=== PATIENT | female | born 1955 ===

== ENCOUNTER 2019-04-07 11:11 | Outpatient (CLI) | payer OTHER | END 2019-04-07 11:16 | disposition home or self-care (01) | LOC: SONOGRAMA 11:11 | DX: M25.511 Pain in right shoulder (principal) ==

== ENCOUNTER 2022-10-02 07:10 | Outpatient (CLI) | payer OTHER | END 2022-10-02 07:12 | disposition home or self-care (01) | LOC: RX STUDY 07:10 | PROVIDERS: ATTEND Internal Medicine Gastroenterology | DX: R13.10 Dysphagia, unspecified (principal) ==